=== PATIENT | female | born 1990 | race Caucasian/White ===

== ENCOUNTER 2018-11-26 08:49 | Outpatient (CLI) | payer OTHER | END 2018-11-26 08:50 | disposition home or self-care (01) | LOC: DI 08:49 | PROVIDERS: ATTEND Family Medicine | DX: R00.2 Palpitations (principal) | CPT/HCPCS: 93306 ==

== ENCOUNTER 2018-12-06 12:18 | Emergency (ER) | payer OTHER ==
--- NOTE | 2018-12-06 13:18 | ED Physician Documentation ---
History of Present Illness - Stated complaint Stated Complaint: SHARMA/WEAKNESS - Chief complaint Chief Complaint: General - History obtained from History obtained from: Patient - History of Present Illness Timing: Yesterday (This is a 28-year-old woman with subacute palpitations which are not worse today but more concerning to her she woke up yesterday with the worst headache of her life. It started on the left and then later worsened again went over to the right with cloudy vision. She has some neck pain but no neck stiffness. She denies weakness, numbness, tingling of the arms or legs. No fevers. No recent travel. No sick contacts. No URI symptoms. No possibility of . She is tried ibuprofen and Excedrin Migraine without relief.) Review of Systems Ten Systems: 10 systems reviewed and negative Constitutional: reports: Fatigue. denies: Fever, Chills Cardiac: reports: Palpitations (She had a 3-day Holter monitor, she does not know the results yet, she had an echo 2 weeks ago that was normal.). denies: Chest pain / pressure Respiratory: denies: Dyspnea, Cough GI: reports: Nausea. denies: Abdominal Pain, Vomiting, Constipation, Diarrhea PD PAST MEDICAL HISTORY - Present Medications Home Medications: Ambulatory Orders Medication Instructions Recorded Confirmed Albuterol Sulfate [Albuterol 12/06/18 Sulfate Hfa] Control Pills 12/06/18 FLUoxetine [PROzac] 20 mg DAILY 12/06/18 12/06/18 SUMAtriptan [Imitrex] 25 mg PO BID PRN #10 tablet 12/06/18 - Allergies Allergies/Adverse Reactions: Allergies Allergy/AdvReac Type Severity Reaction Status Date / Time No Known Drug Allergies Allergy Verified 12/06/18 12:27 PD ED PE NORMAL - Vitals Vital signs reviewed: Yes - General General: Alert and oriented X 3, No acute distress - HEENT HEENT: PERRL, EOMI - Neck Neck: Supple, no meningeal sign, No bony TTP - Cardiac Cardiac: RRR, No murmur, Other (Very occasional PVCs on the monitor which are asymptomatic at rest.) - Respiratory Respiratory: No respiratory distress, Clear bilaterally - Abdomen Abdomen: Soft, Non tender - Back Back: No CVA TTP, No spinal TTP - Derm Derm: Normal color, Warm and dry - Extremities Extremities: No edema, No calf tenderness / cord - Neuro Neuro: Alert and oriented X 3, patient centered care specialist 2-12 intact, No motor deficit, No sensory deficit, Normal speech Results - Vitals Vitals: Vital Signs - 24 hr 12/06/18 12:21 Temperature 36.9 C Heart Rate 85 Respiratory 16 Rate Blood Pressure 148/96 H O2 Saturation 98 Oxygen O2 Source Room air - EKG (time done) 1235 Rate: Rate (enter#) (82) Rhythm: NSR [place]: Normal Intervals: Normal [place] QRS: Normal Ischemia: Normal ST segments Computer interpretation: Agree with computer - Labs Labs: Laboratory Tests 12/06/18 12/06/18 12/06/18 13:22 13:22 13:35 WBC 7.4 RBC 4.49 Hgb 13.4 Hct 39.8 MCV 88.6 MCH 29.8 MCHC 33.7 RDW 13.2 Plt Count 238 MPV 9.8 Neut # (Auto) 4.4 Lymph # (Auto) 2.4 [place] # (Auto) 0.4 Eos # (Auto) 0.2 Baso # (Auto) 0.0 Absolute Nucleated RBC 0.00 Nucleated RBC % 0.0 Sodium 138 Potassium 3.7 Chloride 104 Carbon Dioxide 22 Anion Gap 12.0 BUN 8 Creatinine 0.9 Estimated GFR (MDRD) 75 L Glucose 83 Calcium 9.1 Total Bilirubin 0.5 AST 21 ALT 30 Alkaline Phosphatase 54 Total Protein 7.8 Albumin 3.7 Globulin 4.1 Albumin/Globulin Ratio 0.9 L Lipase 39 Urine Color YELLOW Urine Clarity CLEAR Urine pH 6.0 Ur Specific [place] 1.020 Urine Protein NEGATIVE Urine Glucose (UA) NEGATIVE Urine Ketones NEGATIVE Urine Occult Blood TRACE-INTA Urine Nitrite NEGATIVE Urine Bilirubin NEGATIVE Urine Urobilinogen 1 (NORMAL) Ur Leukocyte Esterase NEGATIVE Ur Microscopic Review NOT INDICATED Urine Culture Comments NOT INDICATED Urine HCG, Qual NEGATIVE - Rads (name of study) CT Head Radiology: EMP read contemporaneously (normal) PD MEDICAL DECISION MAKING - ED course ED course: 28-year-old woman with gradual onset worse than normal headache yesterday, seems migrainous, but it is the worst headache of her life. CT of the head was normal. She was pain-free after migraine medicines here including Compazine, Benadryl, Haldol, and Imitrex. Departure - Departure Disposition: 01 Home, Self Care Clinical Impression: Migraine Qualifiers: Migraine type: without aura Status migrainosus presence: with status migrainosus Intractability: not intractable Qualified Code(s): G43.001 - Migraine without aura, not intractable, with status migrainosus Condition: Good Record reviewed to determine appropriate education?: Yes Instructions: ED Headache Migraine Prescriptions: SUMAtriptan [Imitrex] 25 mg PO BID PRN #10 tablet PRN Reason: Headache Comments: Return for new or worsening symptoms, if headache returns and is severe or if you run a fever or have neck stiffness. Otherwise follow-up with your physician for further evaluation and treatment. Your blood pressure was elevated today on check into the emergency department. This does not mean that you have hypertension, it is a common phenomenon to come to the emergency department and have elevated blood pressure. I recommend that you see your primary care physician within the week to have it rechecked when you are feeling better. Forms: Activity restrictions
[2018-12-06 13:27] LABS: BASOPHILS % (AUTO) 0.4 %; EOSINOPHILS # (AUTO) 0.2 10^3/uL (0.0-0.7); EOSINOPHILS % (AUTO) 2.8 %; HGB - HEMOGLOBIN 13.4 g/dL (12.0-16.0); LYMPHOCYTES # (AUTO) 2.4 10^3/uL (1.5-3.5); LYMPHOCYTES % (AUTO) 32.2 %; MEAN CORPUSCULAR HEMOGLOBIN 29.8 pg (27.0-31.0); MEAN CORPUSCULAR HGB CONC 33.7 g/dL (32.0-36.0); MEAN CORPUSCULAR VOLUME 88.6 fL (81.0-99.0); MEAN PLATELET VOLUME 9.8 fL (7.9-10.8); MONOCYTES # (AUTO) 0.4 10^3/uL (0.0-1.0); NEUTROPHILS # (AUTO) 4.4 10^3/uL (1.5-6.6); NEUTROPHILS % (AUTO) 59.3 %; PLT - PLATELET COUNT 238 10^3/uL (130-450); RED BLOOD COUNT 4.49 10^6/uL (4.20-5.40); RED CELL DISTRIBUTION WIDTH 13.2 % (12.0-15.0); WHITE BLOOD COUNT 7.4 x10^3/uL (4.8-10.8)
[2018-12-06] MEDS ORDERED: METOCLOPRAMIDE 10 MG/2 ML VIAL IVP STA (13:35)
[2018-12-06] MEDS ORDERED: diphenhydrAMINE INJ 50 MG/ML VIAL IVP STA (13:35)
[2018-12-06 13:45] LABS: ALBUMIN 3.7 g/dL (3.2-5.5); ALBUMIN/GLOBULIN RATIO 0.9 (1.0-2.2); BILIRUBIN,TOTAL 0.5 mg/dL (0.2-1.0); CALCIUM 9.1 mg/dL (8.5-10.3); CREATININE 0.9 mg/dL (0.4-1.0); TOTAL PROTEIN 7.8 g/dL (6.7-8.2)
--- NOTE | 2018-12-06 13:57 | CT Report ---
Reason: WHOL Procedure Date: 12/06/2018 Accession Number: [id number] / [id number] Procedure: CT - HEAD WO CPT Code: FULL RESULT: CT HEAD WITHOUT CONTRAST INDICATION: 28-year-old female with worst headache of life. TECHNIQUE: Sequential 5 mm axial images were obtained through the brain. In accordance with CT protocol optimization, one or more of the following dose reduction techniques were utilized for this exam: automated exposure control, adjustment of mA and/or KV based on patient size, or use of iterative reconstructive technique. FINDINGS: There is mild cerebellar tonsillar ectopia. Both tonsils descend into the foramen magnum. There is some crowding at the foramen magnum. However, there is no significant descent of either tonsil below the plane of the foramen magnum and the findings do not meet criteria for diagnosis of a Chiari I malformation. Ventricle size is normal. Attenuation of cortex and white matter is unremarkable. In particular there is no evidence of recent or remote lacunar or cortical infarction. There is no subarachnoid or other intracranial hemorrhage. No abnormal extra-axial fluid collection is demonstrated. There is no mass effect or midline shift. The skull and skull base appear intact. The middle ear cavities and imaged mastoid air cells appear clear. The imaged paranasal sinuses appear clear. Noted is some prominence of the posterior nasopharyngeal soft tissues, likely representing benign adenoidal hyperplasia. IMPRESSION: Negative unenhanced head CT. No acute intracranial pathology is demonstrated. In particular, there is no evidence of subarachnoid or other intracranial hemorrhage.
[2018-12-06 14:03] LABS: BILIRUBIN,URINE NEGATIVE (NEGATIVE); GLUCOSE, URINE (UA) NEGATIVE (NEGATIVE); KETONES,URINE (UA) NEGATIVE (NEGATIVE); LEUKOCYTE ESTERASE, URINE NEGATIVE (NEGATIVE); NITRITE,URINE NEGATIVE (NEGATIVE); OCCULT BLOOD,URINE TRACE-INTA (NEGATIVE); PROTEIN,URINE NEGATIVE (NEGATIVE); UROBILINOGEN,URINE 1 (NORMAL) E.U./dL (NORMAL)
[2018-12-06 14:08] LABS: CLARITY,URINE CLEAR (CLEAR); HCG UR QUAL NEGATIVE
[2018-12-06] MEDS ORDERED: HALOPERIDOL 5 MG/ML VIAL IVP ONE (14:47)
[2018-12-06] MEDS ORDERED: SUMAtriptan 6 MG/0.5 ML VIAL SUBQ STA (14:47)
[2018-12-06 15:59] VITALS: BP 129/90
== END 2018-12-06 16:27 | disposition home or self-care (01) ==
LOC: ED 12:18
DX: G43.001 Migraine without aura, not intractable, with status migrainosus (principal); R03.0 Elevated blood-pressure reading, without diagnosis of hypertension
CPT/HCPCS: 36415; 70450; 80053; 81003; 81025; 83690; 85025; 96372; 96374; 96375; 99284; J1200; J2765; 81001; 87086